=== PATIENT | female | born 1990 | race Two or more races ===

== ENCOUNTER 2021-05-06 15:25 | Inpatient (IN) | payer OTHER ==
[2021-05-06 17:56] LABS: BASO % 0.6 % (0-2.0); EOS % 1.9 % (0-4.5); HEMATOCRIT 32.8 % (32.4-45.2); HEMOGLOBIN 11.5 GM/dL (10.7-15.3); LYMPH % 19.7 % (8-40); MCH 33.2 pg (25.7-33.7); MEAN PLT VOLUME 9.2 fl (7.5-11.1); MONO % 8.7 % (3.8-10.2); NEUT % 69.1 % (42.8-82.8); PLATELET COUNT 166 10^3/uL (134-434); RBC 3.45 M/mm3 (3.60-5.2); RDW 13.2 % (11.6-15.6); WHITE BLOOD COUNT 8.4 K/mm3 (4.0-10.0)
[2021-05-06 18:06] LABS: INR 0.87 (0.83-1.09); PROTHROMBIN TIME (PATIENT) 10.6 SEC (9.7-13.0)
[2021-05-06 18:08] LABS: ACTIVATED PTT 22.6 SECONDS (25.2-36.5)
[2021-05-06 18:16] LABS: CALCIUM 8.9 mg/dL (8.5-10.1)
[2021-05-06] MEDS ORDERED: DINOPROSTONE 10 MG VAGINAL SUPPOSITORY VG ONE (18:20)
[2021-05-06] MEDS ORDERED: ZIDOVUDINE INJECTION 1,000 MG in DEXTROSE 5%-WATER - 150 ML IVPB ONE (18:22)
[2021-05-06] MEDS ORDERED: ZIDOVUDINE INJECTION 1,000 MG in DEXTROSE 5%-WATER - 150 ML IVPB SCH ×2 (18:30→19:00)
[2021-05-06] MEDS ORDERED: ELECTROLYTE-148 SOLN 1,000 ML IV SCH (18:30)
[2021-05-06 18:44] LABS: SYPHILIS W/ RPR CONF NON-REACTIVE (NONREACTIVE)
[2021-05-06 20:27] LABS: HIV INTERPRETATION PRESUMPTIVE POSITIVE (NEGATIVE)
[2021-05-06] MEDS: ZIDOVUDINE INJECTION 1,000 MG in DEXTROSE 5%-WATER - 150 ML IVPB SCH (21:00)
[2021-05-07] MEDS ORDERED: BUTORPHANOL TARTRATE 2 MG/ML VIAL ONE (04:28)
[2021-05-07] MEDS ORDERED: PROMETHAZINE HCL 25 MG/1 ML VIAL ONE (04:28)
[2021-05-07] MEDS ORDERED: PROMETHAZINE HCL 25 MG/1 ML VIAL IVPB ONE (04:35)
[2021-05-07] MEDS ORDERED: BUTORPHANOL TARTRATE 2 MG/ML VIAL IVPB ONE (04:35)
[2021-05-07] MEDS ORDERED: OXYTOCIN 30 UNITS in 0.9% NS 30 UNIT/500 ML INFUS.BAG IVPB ONE ×2 (08:28→09:40)
[2021-05-07] MEDS ORDERED: ELECTROLYTE-148 SOLN 1,000 ML IV SCH (08:45)
[2021-05-07] MEDS ORDERED: OXYTOCIN 30 UNITS in 0.9% NS 30 UNIT/500 ML INFUS.BAG IVPB SCH (08:45)
[2021-05-07] MEDS ORDERED: FENTANYL/BUPIVACAINE/NS/PF - PCEA - 50 ML DISP.SYRIN EP ONE ×3 (09:36→16:19)
[2021-05-07] MEDS ORDERED: PCA PUMP NR ONE ×7 (09:36→21:31)
[2021-05-07] MEDS ORDERED: BUPIVACAINE HCL/PF 0.25% (2.5MG/ML) 10 ML VIAL ONE ×2 (09:41→16:06)
[2021-05-07 09:45] LABS: POC NITRAZINE NEG
[2021-05-07] MEDS: ZIDOVUDINE INJECTION 1,000 MG in DEXTROSE 5%-WATER - 150 ML IVPB SCH ×2 (09:55→22:51)
[2021-05-07] MEDS ORDERED: AMPICILLIN - 2 GM in SODIUM CHLORIDE 100 ML IVPB ONE (10:00)
[2021-05-07] MEDS ORDERED: NALOXONE HCL 0.4 MG/ML VIAL IVPUSH PRN (10:05)
[2021-05-07] MEDS: FENTANYL/BUPIVACAINE/NS/PF - PCEA - 50 ML DISP.SYRIN EP SCH ×2 (10:15→13:30)
[2021-05-07] MEDS ORDERED: AMPICILLIN SODIUM 2 GM VIAL ONE (10:47)
[2021-05-07] MEDS ORDERED: EMTRICITABINE 200MG/TENOFOVIR 300MG PO SCH (11:15)
[2021-05-07] MEDS: RITONAVIR 100 MG TABLET PO SCH ×2 (11:55→22:33)
[2021-05-07] MEDS: DARUNAVIR ETHANOLATE 600 MG TAB PO SCH ×2 (11:55→22:32)
[2021-05-07] MEDS: DOLUTEGRAVIR SODIUM 50 MG TABLET (NON-FORMULARY) PO SCH ×2 (11:56→22:33)
[2021-05-07] MEDS ORDERED: AMPICILLIN SODIUM 1 GM VIAL ONE ×2 (13:54→17:30)
[2021-05-07] MEDS: AMPICILLIN - 1 GM in SODIUM CHLORIDE 100 ML IVPB SCH ×2 (14:05→17:28)
[2021-05-07] MEDS ORDERED: LIDOCAINE HCL/EPINEPHRINE/PF 10 ML VIAL ONE (18:45)
[2021-05-07] MEDS ORDERED: morphine SULFATE/PF 1 MG/2 ML (2cc Syringe - QUVA) ONE ×3 (18:47)
[2021-05-07] MEDS ORDERED: ePHEDrine SULFATE 50 MG/1 ML AMPULE ONE (18:47)
[2021-05-07] MEDS ORDERED: OXYTOCIN 20 UNITS in 0.9% NS 20 UNIT/1,000 ML INFUS.BAG IV ONE ×2 (18:53→21:06)
[2021-05-07] MEDS ORDERED: CITRIC ACID/SODIUM CITRATE 30 ML UNIT-DOSE CUP PO ONE (18:54)
[2021-05-07] MEDS ORDERED: ceFAZolin SODIUM 1 GM VIAL ONE (18:54)
[2021-05-07] MEDS ORDERED: KETOROLAC TROMETHAMINE 30 MG/1 ML VIAL ONE (19:28)
[2021-05-07] MEDS ORDERED: ONDANSETRON 4 MG/2 ML VIAL ONE (19:28)
[2021-05-07] MEDS ORDERED: MINERAL OIL/PETROLATUM,WHITE 3.5 GM TUBE ONE (19:51)
[2021-05-07] MEDS ORDERED: MIDAZOLAM HCL 2 MG/2 ML SINGLE DOSE VIAL ONE (19:52)
[2021-05-07 20:08] LABS: CORD BASE EXCESS -3.9 mmol/L (0-2); CORD HCO3 23.3 mmHg (20-29); CORD PCO2 49.9 mmHg (30-78); CORD pH 7.287 (7.14-7.44)
[2021-05-07 20:10] LABS: CORD BASE EXCESS -2.7 mmol/L (0-2); CORD HCO3 22.5 mmHg (20-29); CORD PCO2 40.5 mmHg (30-78); CORD pH 7.362 (7.14-7.44)
[2021-05-07] MEDS ORDERED: ACETAMINOPHEN 325 MG TABLET (FP) ONE (21:06)
[2021-05-07] MEDS ORDERED: BENZOCAINE 28 GM HEMORRHOIDAL OINTMENT PR PRN (21:17)
[2021-05-07] MEDS ORDERED: oxyCODONE HCL 5 MG TABLET PO PRN ×2 (21:17)
[2021-05-07] MEDS ORDERED: IBUPROFEN 800 MG/8 ML IJ IVPB PRN (21:17)
[2021-05-07] MEDS ORDERED: METHYLERGONOVINE MALEATE 0.2 MG/1 ML AMP IM PRN (21:17)
[2021-05-07] MEDS ORDERED: BENZOCAINE 20% 57 GM BOTTLE TP PRN (21:17)
[2021-05-07] MEDS ORDERED: diphenhydrAMINE HCL 25 MG CAPSULE (FP) PO PRN (21:17)
[2021-05-07] MEDS ORDERED: WITCH HAZEL 50% (TUCKS) 40 PAD/JAR PAD TP PRN (21:17)
[2021-05-07] MEDS ORDERED: ACETAMINOPHEN 325 MG TABLET (FP) PO PRN ×2 (21:19→22:23)
[2021-05-07] MEDS ORDERED: OXYTOCIN 20 UNITS in 0.9% NS 20 UNIT/1,000 ML INFUS.BAG IV SCH (21:30)
[2021-05-07] MEDS ORDERED: DEXTROSE 5%-LACTATED RINGERS 1,000 ML IV SCH (21:30)
[2021-05-07] MEDS ORDERED: ONDANSETRON 4 MG/2 ML VIAL IVPUSH PRN (22:23)
[2021-05-07] MEDS ORDERED: morphine SULFATE/PF 1 MG/2 ML (2cc Syringe - QUVA) EP ONE (22:23)
[2021-05-07] MEDS ORDERED: IBUPROFEN 600 MG TABLET (FP) PO PRN (22:23)
[2021-05-08] MEDS: CEFAZOLIN 1 GM/D5W 1 GM/50 ML BAG IVPB SCH ×2 (02:15→10:05)
[2021-05-08] MEDS: RITONAVIR 100 MG TABLET PO SCH ×2 (10:06→21:04)
[2021-05-08] MEDS: DARUNAVIR ETHANOLATE 600 MG TAB PO SCH ×2 (10:07→21:05)
[2021-05-08] MEDS: EMTRICITABINE 200MG/TENOFOVIR 300MG PO SCH ×3 (10:07→21:05)
[2021-05-08] MEDS: DOLUTEGRAVIR SODIUM 50 MG TABLET (NON-FORMULARY) PO SCH ×2 (10:07→21:05)
[2021-05-08 10:53] LABS: BASO % 0.4 % (0-2.0); EOS % 0.6 % (0-4.5); HEMATOCRIT 28.8 % (32.4-45.2); LYMPH % 8.9 % (8-40); MCH 33.5 pg (25.7-33.7); MCHC 34.6 g/dl (32.0-36.0); MEAN CELL VOLUME 96.9 fl (80-96); MEAN PLT VOLUME 9.3 fl (7.5-11.1); MONO % 7.3 % (3.8-10.2); NEUT % 82.8 % (42.8-82.8); PLATELET COUNT 134 10^3/uL (134-434); RBC 2.97 M/mm3 (3.60-5.2); RDW 13.1 % (11.6-15.6); WHITE BLOOD COUNT 16.8 K/mm3 (4.0-10.0)
[2021-05-08 11:09] LABS: CHLORIDE 105 mmol/L (98-107); SODIUM 136 mmol/L (136-145)
[2021-05-08 11:14] LABS: ALBUMIN 2.2 g/dl (3.4-5.0); ANION GAP 5 MMOL/L (8-16); BLOOD UREA NITROGEN 15.7 mg/dL (7-18); CALCIUM 7.9 mg/dL (8.5-10.1); CO2 26 mmol/L (21-32)
[2021-05-08 11:18] LABS: CREATININE 1.1 mg/dL (0.55-1.3); SGOT/AST 25 U/L (15-37); SGPT/ALT 25 U/L (13-61)
[2021-05-08 11:20] LABS: ALK PHOS 87 U/L (45-117); TOT PROT 5.1 g/dl (6.4-8.2)
[2021-05-08 11:46] LABS: GLUCOSE,RANDOM 44 mg/dL (74-106)
[2021-05-08] MEDS: IBUPROFEN 600 MG TABLET (FP) PO PRN ×2 (13:26→19:17)
[2021-05-08] MEDS: AMOX TR/POT CLAV 875MG/125MG TABLETS (FP) PO SCH (17:24)
[2021-05-08] MEDS: SIMETHICONE 80 MG TAB.CHEW (FP) PO PRN (19:17)
[2021-05-08] MEDS ORDERED: BISACODYL 10 MG SUPP.RECT PR PRN (21:17)
[2021-05-09] MEDS: SIMETHICONE 80 MG TAB.CHEW (FP) PO PRN ×3 (05:06→13:57)
[2021-05-09] MEDS: IBUPROFEN 600 MG TABLET (FP) PO PRN ×4 (05:06→17:19)
[2021-05-09] MEDS: DARUNAVIR ETHANOLATE 600 MG TAB PO SCH ×2 (09:15→21:42)
[2021-05-09] MEDS: DOLUTEGRAVIR SODIUM 50 MG TABLET (NON-FORMULARY) PO SCH ×2 (09:15→21:42)
[2021-05-09] MEDS: RITONAVIR 100 MG TABLET PO SCH ×2 (09:16→21:43)
[2021-05-09] MEDS: AMOX TR/POT CLAV 875MG/125MG TABLETS (FP) PO SCH ×2 (09:18→17:20)
[2021-05-09 09:54] LABS: BASO % 0.6 % (0-2.0); EOS % 1.5 % (0-4.5); HEMATOCRIT 28.3 % (32.4-45.2); HEMOGLOBIN 9.7 GM/dL (10.7-15.3); LYMPH % 10.9 % (8-40); MCHC 34.3 g/dl (32.0-36.0); MEAN CELL VOLUME 96.3 fl (80-96); MEAN PLT VOLUME 8.5 fl (7.5-11.1); MONO % 4.9 % (3.8-10.2); NEUT % 82.1 % (42.8-82.8); PLATELET COUNT 146 10^3/uL (134-434); RBC 2.94 M/mm3 (3.60-5.2); WHITE BLOOD COUNT 15.8 K/mm3 (4.0-10.0)
[2021-05-09] MEDS: EMTRICITABINE 200MG/TENOFOVIR 300MG PO SCH (21:42)
[2021-05-09] MEDS ORDERED: SENNOSIDES/DOCUSATE COMBO (SENNA PLUS) TABLET (UD) PO PRN (22:00)
[2021-05-10] MEDS: IBUPROFEN 600 MG TABLET (FP) PO PRN (03:58)
[2021-05-10] MEDS: AMOX TR/POT CLAV 875MG/125MG TABLETS (FP) PO SCH (07:46)
[2021-05-10] MEDS: DOLUTEGRAVIR SODIUM 50 MG TABLET (NON-FORMULARY) PO SCH (11:21)
[2021-05-10] MEDS: RITONAVIR 100 MG TABLET PO SCH (11:21)
[2021-05-10] MEDS: DARUNAVIR ETHANOLATE 600 MG TAB PO SCH (11:21)
[2021-05-10 11:36] VITALS: BP 101/66; PULSE 65; TEMP 98.6
[2021-05-10 11:46] LABS: BASO % 0.4 % (0-2.0); EOS % 2.3 % (0-4.5); HEMATOCRIT 26.7 % (32.4-45.2); HEMOGLOBIN 9.3 GM/dL (10.7-15.3); LYMPH % 11.4 % (8-40); MCH 33.6 pg (25.7-33.7); MCHC 34.9 g/dl (32.0-36.0); MEAN CELL VOLUME 96.4 fl (80-96); MEAN PLT VOLUME 8.7 fl (7.5-11.1); MONO % 4.2 % (3.8-10.2); NEUT % 81.7 % (42.8-82.8); PLATELET COUNT 179 10^3/uL (134-434); RBC 2.77 M/mm3 (3.60-5.2); RDW 12.9 % (11.6-15.6); WHITE BLOOD COUNT 11.9 K/mm3 (4.0-10.0)
== END 2021-05-10 13:55 | disposition home or self-care (01) | DRG 787 ==
LOC: JLDR 15:25 → J3W 05-07 21:48
PROVIDERS: ADMIT Obstetrics & Gynecology; ATTEND Obstetrics & Gynecology
PROC: 10D00Z1 Extraction of Products of Conception, Low, Open Approach (ICD-10-PCS; principal; 2021-05-07)
PROC: 3E0P7VZ Introduction of Hormone into Female Reproductive, Via Natural or Artificial Opening (ICD-10-PCS; 2021-05-07)
PROC: 3E033VJ Introduction of Other Hormone into Peripheral Vein, Percutaneous Approach (ICD-10-PCS; 2021-05-07)
DX: O48.0 Post-term pregnancy (principal); O98.72 Human immunodeficiency virus [HIV] disease complicating childbirth; O86.4 Pyrexia of unknown origin following delivery; O62.0 Primary inadequate contractions; O76 Abnormality in fetal heart rate and rhythm complicating labor and delivery; O36.63X0 Maternal care for excessive fetal growth, third trimester, not applicable or unspecified; O69.81X0 Labor and delivery complicated by cord around neck, without compression, not applicable or unspecified; Z3A.40 40 weeks gestation of pregnancy; Z37.0 Single live birth
CPT/HCPCS: 36415; 36600; 80048; 80053; 82803; 83986-QW; 85025; 85610; 85730; 86780; 86850; 86900; 86901; 87040; 87086; 87389; 88307-TC; C9803; U0003; U0005